=== PATIENT | male | born 1960 | race Caucasian/White ===

== ENCOUNTER → 2017-09-09 | Outpatient (CLI) | payer BC | END | disposition home or self-care (01) | LOC: C.PATHSPEC 17:27 | PROVIDERS: ATTEND Plastic Surgery | DX: C44.41 Basal cell carcinoma of skin of scalp and neck (principal) ==

== ENCOUNTER → 2018-04-21 | Outpatient (CLI) | payer BC | END | disposition home or self-care (01) | LOC: C.PATHSPEC 17:23 | PROVIDERS: ATTEND Plastic Surgery | DX: C44.529 Squamous cell carcinoma of skin of other part of trunk (principal) ==

== ENCOUNTER → 2018-05-17 | Outpatient (CLI) | payer BC | END | disposition home or self-care (01) | LOC: C.PATHSPEC 17:55 | PROVIDERS: ATTEND Plastic Surgery | DX: C44.529 Squamous cell carcinoma of skin of other part of trunk (principal) ==